=== PATIENT | male | born 1995 | race Caucasian/White ===

== ENCOUNTER 2021-03-29 11:22 | Emergency (ER) | payer OTHER ==
[~2021-03-29] VITALS: Ht 175.3 cm; Wt 99.1 kg
[2021-03-29 11:33] VITALS: BP 125/77
== END 2021-03-29 14:39 | disposition home or self-care (01) ==
LOC: M ED 11:22
DX: S93.402A Sprain of unspecified ligament of left ankle, initial encounter (principal); S09.90XA Unspecified injury of head, initial encounter; W01.0XXA Fall on same level from slipping, tripping and stumbling without subsequent striking against object, initial encounter; Y92.89 Other specified places as the place of occurrence of the external cause; Y99.0 Civilian activity done for income or pay; Z88.0 Allergy status to penicillin; F17.220 Nicotine dependence, chewing tobacco, uncomplicated

== ENCOUNTER 2022-03-11 10:31 | Emergency (ER) | payer OTHER ==
[~2022-03-11] VITALS: Ht 175.3 cm; Wt 100.0 kg
[2022-03-11] MEDS ORDERED: SERT-141 PO (11:21)
[2022-03-11] MEDS ORDERED: BUPR10TASR PO (11:21)
[2022-03-11] MEDS ORDERED: MORPHINE 4 MG/ML 1ML VIAL IV ONE (11:35)
[2022-03-11] MEDS ORDERED: ONDANSETRON 4MG 2ML VIAL IV ONE (11:35)
[2022-03-11 11:51] LABS: BASO # 0.1 10^3/uL (0.0-0.2); BASO % 0.3 % (0.0-1.0); EOS # 0.1 10^3/uL (0.0-0.5); EOS % 0.4 % (0.0-3.0); HEMATOCRIT 44.3 % (42.0-52.0); HEMOGLOBIN 14.7 g/dl (13.5-17.5); LYMPH # 1.2 10^3/uL (1.5-5.0); LYMPH % 6.4 % (24.0-44.0); MEAN CORPUSCULAR HEMOGLOBIN 29.2 pg (27.0-33.0); MEAN CORPUSCULAR HGB CONC 33.2 g/dl (32.0-36.5); MEAN CORPUSCULAR VOLUME 88.1 fl (80.0-96.0); MONO % 5.2 % (2.0-8.0); NEUTROPHILS # 15.8 10^3/uL (1.5-8.5); NEUTROPHILS % 86.4 % (36.0-66.0); PLATELET COUNT, AUTOMATED 293 10^3/uL (150-450); RED BLOOD COUNT 5.03 10^6/uL (4.30-6.10); WHITE BLOOD COUNT 18.3 10^3/uL (4.0-10.0)
[2022-03-11] MEDS ORDERED: ISOVUE-370 76% 100ML VIAL As Ordered ONE (11:55)
[2022-03-11 12:16] LABS: ALBUMIN 4.1 G/DL (3.2-5.2); BILIRUBIN,DIRECT 0.1 MG/DL (<0.4); BILIRUBIN,TOTAL 0.4 MG/DL (0.3-1.2); TOTAL PROTEIN 7.5 G/DL (5.7-8.2)
[2022-03-11] MEDS ORDERED: diazePAM 10MG/2ML SYRINGE IV ONE ×2 (12:35→14:55)
[2022-03-11] MEDS ORDERED: KETOROLAC 30 MG/ML 1ML VIAL IV ONE (12:35)
[2022-03-11 15:33] VITALS: BP 121/68
== END 2022-03-11 15:35 | disposition short-term general hospital (02) ==
LOC: M ED 10:31
DX: S32.010A Wedge compression fracture of first lumbar vertebra, initial encounter for closed fracture (principal); M48.061 Spinal stenosis, lumbar region without neurogenic claudication; M43.8X6 Other specified deforming dorsopathies, lumbar region; V69.9XXA Occupant (driver) (passenger) of heavy transport vehicle injured in unspecified traffic accident, initial encounter; Y99.0 Civilian activity done for income or pay; Z88.0 Allergy status to penicillin
CPT/HCPCS: 36415; 72128; 72131; 73521; 74177; 80047; 80076; 83690; 85025; 87635; 96374; 96375; 96376; 99284; J2405

== ENCOUNTER → 2022-08-18 | Outpatient (CLI) | payer OTHER ==
[~2022-08-18] MED LIST: BUPR10TASR PO; SERT-141 PO
== END ==
LOC: M PLARAD 09:49
PROVIDERS: ATTEND Nurse Practitioner Family
DX: R20.0 Anesthesia of skin (principal); M48.061 Spinal stenosis, lumbar region without neurogenic claudication; S32.011D Stable burst fracture of first lumbar vertebra, subsequent encounter for fracture with routine healing

== ENCOUNTER 2022-11-29 13:33 | Emergency (ER) | payer OTHER ==
[~2022-11-29] VITALS: Ht 172.7 cm; Wt 107.0 kg
[2022-11-29 14:24] LABS: BASO % 0.3 % (0.0-1.0); EOS # 0.2 10^3/uL (0.0-0.5); EOS % 1.5 % (0.0-3.0); HEMATOCRIT 43.5 % (42.0-52.0); HEMOGLOBIN 14.4 g/dl (13.5-17.5); LYMPH # 1.6 10^3/uL (1.5-5.0); LYMPH % 13.6 % (24.0-44.0); MEAN CORPUSCULAR HEMOGLOBIN 29.1 pg (27.0-33.0); MEAN CORPUSCULAR HGB CONC 33.1 g/dl (32.0-36.5); MEAN CORPUSCULAR VOLUME 87.9 fl (80.0-96.0); MONO # 0.8 10^3/uL (0.0-0.8); MONO % 6.8 % (2.0-8.0); NEUTROPHILS # 9.1 10^3/uL (1.5-8.5); NEUTROPHILS % 77.5 % (36.0-66.0); PLATELET COUNT, AUTOMATED 278 10^3/uL (150-450); RED BLOOD COUNT 4.95 10^6/uL (4.30-6.10); WHITE BLOOD COUNT 11.7 10^3/uL (4.0-10.0)
[2022-11-29 14:36] LABS: PROTHROMBIN TIME 12.9 SECONDS (12.5-14.5)
[2022-11-29 14:52] LABS: LIPASE 29 U/L (12-53)
[2022-11-29 14:54] LABS: ALBUMIN 4.1 G/DL (3.2-5.2); ALKALINE PHOSPHATASE 89 U/L (46-116); ALT/SGPT 31 U/L (7.0-40); AST/SGOT 34 U/L (<34); BILIRUBIN,DIRECT 0.1 MG/DL (<0.4); BILIRUBIN,TOTAL 0.4 MG/DL (0.3-1.2); CK-MB VALUE MASS < 1.0 NG/ML (<3.6)
[2022-11-29 14:58] LABS: CPK CREATINE PHOSPHOKINASE 107 U/L (46-171); MB/CK RELATIVE INDEX 0.93 (< OR =4)
[2022-11-29 16:26] LABS: RSV AMPLIFICATION NEGATIVE (NEGATIVE)
[2022-11-29] MEDS ORDERED: NS 1,000 ML IV ONE (17:00)
[2022-11-29] MEDS ORDERED: ONDANSETRON 4MG 2ML VIAL IV ONE (17:00)
[2022-11-29] MEDS ORDERED: LORazepam 2 MG/ML 1ML VIAL IV STA (18:00)
[2022-11-29 18:03] LABS: CK-MB VALUE MASS < 1.0 NG/ML (<3.6)
[2022-11-29 18:04] LABS: CPK CREATINE PHOSPHOKINASE 102 U/L (46-171); MB/CK RELATIVE INDEX 0.98 (< OR =4)
[2022-11-29 21:33] LABS: APPEARANCE, URINE CLEAR (CLEAR); BACTERIA, URINE AUTO NEGATIVE (NEGATIVE); BILIRUBIN, URINE AUTO NEGATIVE (NEGATIVE); BLOOD, URINE BLOOD NEGATIVE (NEGATIVE); COLOR, URINE YELLOW (YELLOW); GLUCOSE, URINE (UA) AUTO NEGATIVE (NEGATIVE); KETONE, URINE AUTO NEGATIVE (NEGATIVE); LEUKOCYTE ESTERASE, URINE AUTO NEGATIVE (NEGATIVE); MUCUS, URINE SMALL (NEGATIVE); NITRITE, URINE AUTO NEGATIVE (NEGATIVE); PROTEIN, URINE AUTO NEGATIVE (NEGATIVE); RBC, URINE AUTO 1 /HPF (0-3); SPECIFIC GRAVITY URINE AUTO 1.023 (1.002-1.035); SQUAMOUS EPITHELIAL CELL UR AU 0 /HPF (0-6); UROBILINOGEN, URINE AUTO 0.2 mg/dL (0.0-2.0); WBC, URINE AUTO 1 /HPF (0-3)
[2022-11-29 21:52] LABS: AMPHETAMINES LEVEL URINE NEGATIVE (NEGATIVE); BARBITURATES URINE NEGATIVE (NEGATIVE); BENZODIAZEPINES URINE NEGATIVE (NEGATIVE); CANNABINOIDS URINE NEGATIVE (NEGATIVE); COCAINE METABOLITE URINE NEGATIVE (NEGATIVE); METHADONE URINE NEGATIVE (NEGATIVE); OPIATES URINE NEGATIVE (NEGATIVE); PHENCYCLIDINE URINE NEGATIVE (NEGATIVE)
[2022-11-29 23:18] VITALS: BP 152/88; TEMP 98.9; O2SAT 95
== END 2022-11-30 01:14 | disposition home or self-care (01) ==
LOC: M ED 13:33
DX: R20.2 Paresthesia of skin (principal); R42 Dizziness and giddiness; R94.02 Abnormal brain scan; Z88.0 Allergy status to penicillin; Z79.899 Other long term (current) drug therapy
CPT/HCPCS: 70450; 70544; 70547; 70551; 71045; 80047; 80076; 80307; 81001; 82550; 82553; 83690; 84484; 85025; 85610; 85652; 86618; 87631; 93005; 93041; 94760; 96374; 96375; 99285; J2405

== ENCOUNTER 2024-04-26 12:46 | Emergency (ER) | payer OTHER ==
[~2024-04-26] VITALS: Ht 175.3 cm; Wt 83.0 kg
[2024-04-26 14:47] LABS: HEMATOCRIT 39.1 % (42.0-52.0); HEMOGLOBIN 13.1 g/dl (13.5-17.5); MEAN CORPUSCULAR HEMOGLOBIN 29.4 pg (27.0-33.0); MEAN CORPUSCULAR HGB CONC 33.5 g/dl (32.0-36.5); MEAN CORPUSCULAR VOLUME 87.7 fl (80.0-96.0); PLATELET COUNT, AUTOMATED 164 10^3/uL (150-450); RED BLOOD COUNT 4.46 10^6/uL (4.30-6.10); WHITE BLOOD COUNT 11.6 10^3/uL (4.0-10.0)
[2024-04-26 14:56] LABS: INR 0.99; PROTHROMBIN TIME 13.4 SECONDS (12.5-14.5)
[2024-04-26 15:09] LABS: LIPASE 35 U/L (12-53)
[2024-04-26 15:10] LABS: CPK CREATINE PHOSPHOKINASE 40 U/L (46-171)
[2024-04-26 15:11] LABS: ALBUMIN 3.4 G/DL (3.2-5.2); ALKALINE PHOSPHATASE 626 U/L (40-129); ALT/SGPT 283 U/L (7.0-40); AST/SGOT 320 U/L (<34); BILIRUBIN,DIRECT 0.3 MG/DL (<0.4); BILIRUBIN,TOTAL 0.8 MG/DL (0.3-1.2); BLOOD UREA NITROGEN 13 MG/DL (9-23); CALCIUM LEVEL 8.2 MG/DL (8.5-10.1); CARBON DIOXIDE LEVEL 26 MMOL/L (20-31); CHLORIDE LEVEL 106 MMOL/L (98-107); CK-MB VALUE MASS < 1.0 NG/ML (<3.6); CREATININE FOR GFR 0.68 MG/DL (0.70-1.30); GLOMERULAR FILTRATION RATE > 60.0 (>60); GLUCOSE, FASTING 92 MG/DL (60-100); POTASSIUM SERUM 3.4 MMOL/L (3.5-5.1); SODIUM LEVEL 140 MMOL/L (136-145); TOTAL PROTEIN 6.8 G/DL (5.7-8.2)
[2024-04-26 15:12] LABS: THYROID STIMULATING HORMONE 1.476 uIU/ML (0.55-4.78)
[2024-04-26 15:13] LABS: FREE T4 1.11 NG/DL (0.89-1.76)
[2024-04-26 15:15] LABS: ATYPICAL LYMPH 40 % (0-5); LYMPHOCYTES 33 % (16-44); MONOCYTES 3 % (0-5); NEUTROPHILS 24 % (28-66)
[2024-04-26 15:16] LABS: PLATELET ESTIMATE NORMAL (NORMAL)
[2024-04-26 17:38] LABS: CK-MB VALUE MASS < 1.0 NG/ML (<3.6)
[2024-04-26 17:40] LABS: CPK CREATINE PHOSPHOKINASE 35 U/L (46-171); MB/CK RELATIVE INDEX 2.85 (< OR =4)
[2024-04-26] MEDS ORDERED: ISOVUE-370 76% 100ML VIAL As Ordered ONE (18:13)
[2024-04-26 20:08] LABS: MONO SCRN POSITIVE (NEGATIVE)
[2024-04-26 20:18] LABS: HEPATITIS B SURFACE ANTIGEN NEGATIVE (NEGATIVE)
[2024-04-26 20:39] LABS: HEPATITIS B CORE ANTIBODY IGM NEGATIVE (NEGATIVE)
[2024-04-26 21:22] VITALS: BP 120/58; TEMP 99; O2SAT 95
== END 2024-04-26 21:40 | disposition home or self-care (01) ==
LOC: M ED 12:46
DX: B27.90 Infectious mononucleosis, unspecified without complication (principal); R94.5 Abnormal results of liver function studies; R16.1 Splenomegaly, not elsewhere classified; R78.5 Finding of other psychotropic drug in blood; F43.10 Post-traumatic stress disorder, unspecified; M43.26 Fusion of spine, lumbar region; Z79.899 Other long term (current) drug therapy; Z88.0 Allergy status to penicillin
CPT/HCPCS: 71046; 72110; 74177; 80048; 80074; 80076; 82550; 82553; 83690; 84439; 84443; 84484; 85025; 85610; 85730; 86308; 93005; 93041; 99285; Q9967

== ENCOUNTER → 2025-01-16 | Outpatient (CLI) | payer OTHER | LOC: M PLAIMG 07:39 | PROVIDERS: ATTEND Neurological Surgery | DX: S32.010A Wedge compression fracture of first lumbar vertebra, initial encounter for closed fracture (principal); W18.30XA Fall on same level, unspecified, initial encounter; Y92.009 Unspecified place in unspecified non-institutional (private) residence as the place of occurrence of the external cause ==

== ENCOUNTER 2025-02-02 19:15 | Emergency (ER) | payer OTHER ==
[~2025-02-02] VITALS: Ht 175.3 cm; Wt 82.9 kg
[2025-02-02] MEDS ORDERED: ISOVUE-370 76% 100 ML VIAL As Ordered ONE (19:24)
[2025-02-02 19:39] LABS: BASO # 0.0 10^3/uL (0.0-0.2); BASO % 0.3 % (0.0-1.0); EOS # 0.0 10^3/uL (0.0-0.5); EOS % 0.4 % (0.0-3.0); LYMPH # 1.9 10^3/uL (1.5-5.0); LYMPH % 17.9 % (24.0-44.0); MONO # 0.8 10^3/uL (0.0-0.8); MONO % 7.3 % (2.0-8.0); NEUTROPHILS # 7.7 10^3/uL (1.5-8.5); NEUTROPHILS % 73.4 % (36.0-66.0); PLATELET COUNT, AUTOMATED 226 10^3/uL (150-450)
[2025-02-02 20:01] LABS: INR 1.0
[2025-02-02 20:03] LABS: ETHYL ALCOHOL (ETHANOL) < 0.003 % (0.000-0.010)
[2025-02-02 20:06] LABS: CALCIUM LEVEL 8.3 MG/DL (8.5-10.1); CARBON DIOXIDE LEVEL 26 MMOL/L (20-31); CHLORIDE LEVEL 104 MMOL/L (98-107); CK-MB VALUE MASS < 1.0 NG/ML (<3.6); CPK CREATINE PHOSPHOKINASE 96 U/L (46-171); CREATININE FOR GFR 0.79 MG/DL (0.70-1.30); GLOMERULAR FILTRATION RATE > 90.0 (>60); POTASSIUM SERUM 4.5 MMOL/L (3.5-5.1); SODIUM LEVEL 138 MMOL/L (136-145)
[2025-02-02] MEDS: NALOXONE 2 MG/2 ML SYRINGE IV STA (20:53)
[2025-02-02] MEDS: NS (Normal Saline) 0.9% 1,000 ML IV ONE ×2 (20:53→21:53)
[2025-02-02 21:33] LABS: CK-MB VALUE MASS < 1.0 NG/ML (<3.6)
[2025-02-02] MEDS: CALCIUM GLUCONATE 1,000 MG in DEXTROSE 5% (D5W) MINI-BAG PLU 100 ML IV ONE (21:33)
[2025-02-02 21:35] LABS: CPK CREATINE PHOSPHOKINASE 68 U/L (46-171)
[2025-02-02] MEDS: MAG SULF 1GM/100ML (MAG RUN) 1 GM in IV 1 EA IV ONE (21:53)
[2025-02-02] MEDS: ACETAMINOPHEN *IV* 1,000 MG in IV 1 EA IV ONE (21:53)
[2025-02-02] MEDS: KETOROLAC 30 MG/ML 1 ML VIAL IV ONE (21:54)
[2025-02-02 22:29] LABS: AMPHETAMINES LEVEL URINE NEGATIVE (NEGATIVE); BARBITURATES URINE NEGATIVE (NEGATIVE); BENZODIAZEPINES URINE NEGATIVE (NEGATIVE); COCAINE METABOLITE URINE NEGATIVE (NEGATIVE); PHENCYCLIDINE URINE NEGATIVE (NEGATIVE)
[2025-02-02 22:30] LABS: METHADONE URINE NEGATIVE (NEGATIVE); OPIATES URINE NEGATIVE (NEGATIVE)
[2025-02-02 22:56] LABS: CANNABINOIDS URINE NEGATIVE (NEGATIVE)
[2025-02-03] MEDS: SIMVASTATIN 20 MG TAB PO ONE (00:42)
[2025-02-03] MEDS ORDERED: ZOLO100T PO (11:14)
[2025-02-03] MEDS ORDERED: HOME MED LIST COMPLETE! XX SCH (11:15)
[2025-02-03 15:34] VITALS: BP 124/70; TEMP 98.5; O2SAT 97
== END 2025-02-03 15:44 | disposition home or self-care (01) ==
LOC: M ED 19:15 → EDBD 19:15 → M ED 02-03 15:44
DX: R07.9 Chest pain, unspecified (principal); R20.2 Paresthesia of skin; Z88.0 Allergy status to penicillin; F41.9 Anxiety disorder, unspecified; F32.A Depression, unspecified; I45.10 Unspecified right bundle-branch block; Z79.899 Other long term (current) drug therapy
CPT/HCPCS: 70450; 70496; 70498; 70544; 70551; 71045; 80047; 80048; 80307; 82077; 82550; 82553; 84484; 85025; 85610; 85730; 87486; 87581; 87633; 87798; 93005; 93041; 94760; 96361; 96365; 96367; 96375; 99285; J0134; J0612; J1100; J1885; J3475; Q9967